=== PATIENT | female | born 1950 | race Caucasian/White ===

== ENCOUNTER 2023-12-31 08:34 | Observation (INO) ==
--- NOTE | 2023-12-15 13:30 | PAT Medication Instructions ---
Medication Instructions Date of Service December 15, 2023 Home Medications Medication Instructions Recorded meloxicam 15 mg tablet See Rx Instructions .Route 11/03/23 .COMPLEX #60 tabs atorvastatin 20 mg tablet (Lipitor) 20 mg PO PM esomeprazole magnesium 20 mg capsule,delayed release (Nexium) 20 mg PO DAILY PRN Heartburn sertraline 50 mg tablet (Zoloft) 50 mg PO PM coenzyme Q10 100 mg capsule (Co Q-10) 100 mg PO PM meloxicam 15 mg tablet See Rx Instructions Continue as directed esomeprazole magnesium 20 mg capsule,delayed release (Nexium) 20 mg PO DAILY PRN Heartburn (if needed) ASK your surgeon for instructions meloxicam 15 mg tablet See Rx Instructions STOP taking 2 weeks before surgery (or as soon as possible): coenzyme Q10 100 mg capsule (Co Q-10) 100 mg PO PM Take evening before surgery atorvastatin 20 mg tablet (Lipitor) 20 mg PO PM sertraline 50 mg tablet (Zoloft) 50 mg PO PM OTHERWISE NOTHING TO EAT OR DRINK AFTER MIDNIGHT Other Notes If you have any questions please call us at [phone] or [phone] or [phone] or [phone]
--- NOTE | 2023-12-17 13:00 | Anesthesiology Consultation ---
Date of Service December 17, 2023 Assessment & Plan (1) Encounter for pre-operative examination: Outpatient joint assessment: Pt currently scheduled for inpatient pathway. If surgeon requests review for outpatient joint pathway, patient is not recommended candidate for outpatient joint program from anesthesia standpoint based on available information. Chart Review Chart Review: Acceptable Risk for Surgery and Patient seen in Pre Admission Testing Teaching & Discussion Pre-Anesthesia Teaching/Discussion Notes: Instructed NPO after midnight before surgery,except medications with 15 cc of water. Medication instructions provided according to the PAT guidelines. History Surgery Operation Date: 12/31/23 08:50 Proposed Procedures p Right Total Knee Arthroplasty - Michael Weinberg MD Height/Weight Height: 5 ft 3 in Weight: 79 kg Allergies Allergy/AdvReac Type Severity Reaction Status Date / Time No Known Allergies Allergy Verified 12/15/23 10:54 Medications Home Medications Medication Instructions Recorded Confirmed Last Taken atorvastatin 20 mg tablet (Lipitor) 20 mg PO PM 08/14/21 12/15/23 Unknown esomeprazole magnesium 20 mg 20 mg PO DAILY PRN Heartburn 08/14/21 12/15/23 Unknown capsule,delayed release (Nexium) sertraline 50 mg tablet (Zoloft) 50 mg PO PM 08/14/21 12/15/23 Unknown coenzyme Q10 100 mg capsule (Co 100 mg PO PM 08/29/21 12/15/23 Unknown Q-10) meloxicam 15 mg tablet See Rx Instructions .Route 11/03/23 12/15/23 Unknown .COMPLEX #60 tabs vitamin D3-vitamin K2 1 tab PO PM 12/17/23 12/17/23 Unknown Past Medical History Medical History Anxiety Depression GERD (gastroesophageal reflux disease) History of COVID-19 (04/2022) Symptoms resolved History of dizziness Intermittent x years, Managed with Meclizine PRN No definitive etiology found per patient Hyperlipidemia Osteoarthritis Exercise / Class Metabolic Activity II 4-5 Yardwork/Stairs/Walk up hill (one FS: No CP, no SOB) Past Family History Family History Mother Leukemia Past Surgical History Surgical History History of adenoidectomy History of carpal tunnel release Right History of colonoscopy History of hysterectomy History of postoperative nausea and vomiting History of tonsillectomy History of tooth extraction S/P right knee arthroscopy 09[place]20[place] [facility] [place] Slow to wake up after anesthesia Past Anesthesia History No Family Hx of Anesthesia Complications and Other (Slow to wake (specifically with hysterectomy)) History of PONV No Hx of Motion Sickness and History of PONV Social History Smoking Status: Never smoker Do You Dip or Chew Tobacco: No Hx Alcohol Use: Yes alcohol intake frequency: holidays/special occasions only Hx Substance Use: No substance use type: does not use Review of Systems Hx of dizziness over past several years resolved with Meclizine PRN. No definitive etiology found per patient. Recent recurrence, will be contacting PCP for Meclizine refill. Patient advised to contact PAT if worsening/persistence of dizziness outside of baseline. Red flag symptoms reviewed and advised to proceed to ER if any development of these. Patient denies chest pain, shortness of breath, dyspnea on exertion, fever, chills, cough, wheezing, palpitations. Physical Exam Vital Signs BP 118/71 P 80 TEMP 98.6 SP02 96%RA RESP 16 Physical Full cervical extension range of motion. Full TMJ range of motion. TMD 3.5 finger breaths Mallampati Score 3 Dentition: intact Lungs: clear throughout to auscultation Cardiac: regular rate and rhythm, no murmurs noted Spine: normal Carotid arteries: negative bruit Extremities: no LE edema Lab Results Anesthesia Preop Results Results Anesthesia Widget: WBC 5.92 K/ul (4.8-10.8) 12/17/23 Hgb 13.1 g/dl (12.0-16.0) 12/17/23 Hct 39.4 % (37.0-47.0) 12/17/23 Plt 201 K/uL (130-400) 12/17/23 Na 142 mmol/L (136-145) 12/17/23 K 4.4 mmol/L (3.5-5.1) 12/17/23 Cl 109 mmol/L (98-107) H 12/17/23 CO2 28 mmol/L (21-32) 12/17/23 BUN 20 mg/dl (6-23) 12/17/23 Creat 0.70 mg/dl (0.6-1.2) 12/17/23 Glucose Level 109 mg/dl (70-99(Fasting)) H 12/17/23 PT 10.4 Seconds (9.0-12.0) 12/17/23 PTT 24 Seconds (21-31) 12/17/23 INR 1.0 (0.9-1.1) 12/17/23 Blood Type O Positive 12/17/23 Antibody Screen NEGATIVE 12/17/23 Testing Electrocardiogram Date: 12/17/23 NSR at 75bpm. LAD. Low voltage QRS. No significant change compared to 09/02/2021 per theatrical dresser comparison. Chest X-Ray Date: 12/17/23 Findings: + NAD
[~2023-12-31 08:34] MED LIST: BUPIVACAINE 0.5 % 5 MG/1 ML PF 10ML VIAL ONE; ROPIVACAINE 0.5% 5 MG/ML 30 ML VIAL ONE
--- NOTE | 2023-12-31 08:42 | History & Physical Bridge Note ---
Date of Service December 31, 2023 History & Physical Bridge Note I have examined the patient, reviewed the History & Physical and in the interval since the performance of the History & Physical I have noted the following changes of clinical significance: no changes noted
[2023-12-31] MEDS ORDERED: LIDOCAINE 2% 2 ML VIAL/AMP(20MG/ML) INFIL ONE (09:08)
[2023-12-31] MEDS ORDERED: PROPOFOL IV EMULSION 10 MG/ML 20 ML VIAL IV ONE ×4 (09:08→12:39)
[2023-12-31] MEDS ORDERED: MIDAZOLAM HCL 1 MG/ML 2ML VIAL ONE (09:08)
[2023-12-31] MEDS: LR 60ML/HR IV SCH (09:46)
[2023-12-31] MEDS: LR 500ML BOLUS, THEN 15ML/HR IV SCH (09:46)
[2023-12-31] MEDS: dexAMETHasone**PF** 10 MG/ML VIAL IV SCH (09:47)
[2023-12-31] MEDS: CeleBREX 200 MG CAP PO SCH (09:47)
[2023-12-31] MEDS: METOCLOPRAMIDE HCL 10 MG TABLET PO SCH (09:47)
[2023-12-31] MEDS: ACETAMINOPHEN 500 MG TAB PO SCH ×2 (09:48→14:37)
[2023-12-31] MEDS: FAMOTIDINE 20 MG TAB PO SCH (09:48)
[2023-12-31] MEDS: ceFAZolin 2000MG 2,000 MG/15 ML SYR IV SCH (11:12)
[2023-12-31] MEDS ORDERED: ePHEDrine sulfate 50 MG/ML AMP IV PRN (11:14)
[2023-12-31] MEDS ORDERED: fentaNYL citrate PF 100 MCG/2 ML VIAL IV PRN (11:14)
[2023-12-31] MEDS ORDERED: PROMETHAZINE HCL 6.25 MG in SODIUM CHLORIDE 0.9% 50 ML IV PRN (11:14)
[2023-12-31] MEDS ORDERED: ATROPINE SULFATE 0.1 MG/ML 10ML SYR IV PRN (11:14)
[2023-12-31] MEDS ORDERED: ONDANSETRON INJ 2 MG/ML 2 ML VIAL IV PRN ×2 (11:14→14:10)
[2023-12-31] MEDS ORDERED: HYDROmorphone INJ 2 MG/ML SYR/VIAL IV PRN (11:14)
[2023-12-31] MEDS ORDERED: KETAMINE HCL 10MG/ML SYR ONE (11:26)
[2023-12-31] MEDS ORDERED: GLYCOPYRROLATE 0.2 MG/ML VIAL ONE (11:29)
[2023-12-31] MEDS ORDERED: ONDANSETRON INJ 2 MG/ML 2 ML VIAL ONE (11:29)
[2023-12-31] MEDS: ROPIV 0.5% 246mg, Ketorolac 30mg, EPINEPHrine 0.5mg in NSS INFIL SCH (12:08)
[2023-12-31] MEDS: TRANEXAMIC ACID 1,000 MG **IV Intra-op IV SCH (12:13)
[2023-12-31] MEDS: ORTHO JOINT ANESTHETIC ONE (12:27)
[2023-12-31] MEDS ORDERED: PHENYLEPHRINE 100MCG/ML 10ML SYR IV ONE (12:45)
--- NOTE | 2023-12-31 13:19 | Operative Report ---
PG Post Operative Report Pre & Post Diagnosis Operation Date: 12/31/23 10:40 Pre-Op Diagnosis: Right Knee Degenerative Joint Disease Post-Op Diagnosis: Right Knee Degenerative Joint Disease I identified the patient and participated in the time-out.: Yes Procedure Operation Date: 12/31/23 10:40 Actual Procedures p Right Total Knee Arthroplasty(Right) - Michael Weinberg MD Surgeon Michael Weinberg MD Machine Package Sealer Sunita Abernathy PA-C Estimated Blood Loss 50 Findings Consistent with Post-Op Diagnosis Operative findings revealed advanced right knee DJD. 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 Moderate- sized joint effusion. Specimens Right knee sent for pathology. Anesthesia Type Spinal MAC Complications none Disposition Accompanied Patient To Recovery: No Indications Patient is 73-year-old female with several year history of increasing bilateral knee pain discomfort right side greater than left. She did have a right knee arthroscopy several years ago which provide some temporary relief. Over the past year she developed increased pain discomfort in both knees right side worse than left. She failed conservative treatment. She elected proceed with total knee arthroplasty. Description of Procedure Operative implants consist of: 1 Biomet Vanguard size 65 right posterior stabilized femoral component. 2. Biomet size 67 tibial tray. 3. 10 mm posterior Byce polyethylene insert. 4. 31 x 8 all poly patella. The patient was taken the operating, identified, placed on the operating table in supine position but all contact areas were appropriately padded. IV antibiotics tried by anesthesia team. A spinal anesthetic and abductor canal block had been provided in the holding area. Bell catheter was placed in sterile fashion. Right Tetrick was then placed in the right lower extremities then prepped and draped in usual sterile fashion. The right leg was elevated and exsanguinated with use of an Esmarch and tourniquet placed at 300 mmHg. An anterior approach to the right knee was then performed to longitudinal incision centered over the patella. Sharp dissection Through subcutaneous tissue down the lower extensor mechanism. A medial parapatellar arthrotomy incision was made. Some subperiosteal dissection was carried out medially. The fat pad was resected from Neath patella tendon. Lateral patellofemoral ligament was released. Patella subluxated laterally and the knee was flexed. The osteophyte taken off distal femur. ACL PCL were then released from distal femur and the tibia subluxated anteriorly. The external treatment line jig was then placed on the anterior face of the tibia and adjusted 12 mm medially. Proximal tibial cut was made remove about 2 to 3 mm of bone from the medial side. Tibia sized to a size 67. Attention drawn the femur. The distal femur Zaro the sharp drill. Intramedullary canal was suction. A right 5 degree valgus cutting guide was placed. The distal femoral cutting block was pinned in place. Distal femoral cut was made to take an additional 3 mm of bone off distal femur. The femur was then sized to a size 65. The AP cutting block was pinned parallel to the epicondylar axis which was 4 degrees of external rotation. The anterior cut, anterior chamfer, posterior cut, posterior chamfer cuts were made. The box cutting guide was placed and adjust slight lateral box cut was made. The knee was flexed. The remnants of the medial and lateral menisci were excised. The osteophytes were taken off the posterior aspect of the femur. I did release the popliteus tendon in order to equalize the flexion gap. I did do some pie crusting the IT band to equalize extension gap as well. Great care was taken to protect the peroneal nerve at all times. The trial femoral component was placed. The tibial tray was pinned Julieta external rotation and the drill and stem punch were used to create defect in proximal tibia for the tibial tray. Knee was then trialed and the 10 mm insert fit most appropriately. Attention drawn the patella. The patella was cleaned of all soft tissues. Patella thickness measured 23 mm in thickness was cut down to 14. Was sized to a size 31 patella. The lug holes were drilled for 31 patella. The lateral osteophytes removed. Patella button was placed. Knee was taken through range of motion patella tracked nicely with no thumbs test. Attention drawn to placing permanent components. Nupathe all trial components were removed. A bone plug was placed in the distal femur limit blood loss. A double batch Palacos G cement was mixed. Biomet Vanguard size 65 right posterior Byce femoral component, size 67 tibial tray, 10 mm post stabilized polyethylene insert, and a 31 x 8 all poly patella then cemented in place. The knee was brought out into full extension till cement hardened. Final cement check was then performed. The pericapsular tissues were injected with total of 100 cc of Ortho mix. The patient did receive 1 g tranexamic acid. The tourniquet was then let down for final tourniquet time of 59 minutes. Hemostasis assured use electrocautery. Extensor Meclomen closed with comb ination 1 PDS suture #1 Vicryl suture in a [id number] fashion. Extensor Meclomen checked found to be intact with subcutaneous tissue then closed with 2 Dexon suture in a buried interrupted fashion skin was closed skin pop. Leg was then cleaned and dried and a sterile dressing with Xeroform, 4 fours, sterile cast padding, Dakota bandage were applied. Patient then transferred to the recovery room in stable condition. Patient tolerated procedure well and there were no complications. Sunita Abernathy, my physician under water assistant, was present for the entire procedure. Her assistance was required for proper patient positioning, prepping and draping, surgical exposure, retraction, perform the technical details of the operation, placement of the implants, closure of the incision site and placement of the sterile bandage. I attest to the content of the Intraoperative Record and any orders documented therein. Any exceptions are noted below.
[2023-12-31] MEDS ORDERED: bisacodyL 10 MG SUPP PR PRN (14:10)
[2023-12-31] MEDS ORDERED: NALOXONE HCL 0.4 MG/1 ML VIAL/CARP IV PRN (14:10)
[2023-12-31] MEDS ORDERED: METOCLOPRAMIDE HCL INJ 5 MG/ML 2 ML VIAL IV PRN (14:10)
[2023-12-31] MEDS ORDERED: MAGNESIUM HYDROXIDE SUSP 30 ML UDC PO PRN (14:10)
[2023-12-31] MEDS ORDERED: ALUMINUM/MAGNESIUM SUSP 30 ML UDC PO PRN (14:10)
[2023-12-31] MEDS ORDERED: HYDROmorphone INJ 0.5 MG/0.5 ML SYR IV PRN (14:10)
--- NOTE | 2023-12-31 14:14 | Anesthesiology Progress Note ---
Date of Service December 31, 2023 Anesthesia Post Procedure Vital Signs Vital Signs: Temp Pulse Pulse Resp BP Pulse Ox O2 Del Method 12/31/23 14:00 36.9 C 74 16 113/70 97 Room Air 12/31/23 13:40 36.3 C L 71 15 96/53 L 94 Room Air 12/31/23 13:30 77 16 116/56 L 94 Room Air 12/31/23 13:20 75 18 117/56 L 94 Room Air 12/31/23 13:10 78 15 111/55 L 94 Room Air 12/31/23 13:03 36.1 C L 84 14 103/56 L 96 Room Air 12/31/23 09:14 36.9 C 87 20 147/77 H 97 Room Air Transfer of Care Handoff Completed per policy Notes Mental Status: alert / awake / arousable and participated in evaluation Patient Amnestic to Procedure: Yes Nausea / Vomiting: adequately controlled Pain: adequately controlled Airway Patency, RR, SpO2: stable & adequate BP & HR: stable & adequate Hydration State: stable & adequate Anesthetic Complications: no major complications apparent
[2023-12-31] MEDS ORDERED: PANTOprazole 40 MG TAB PO PRN (14:17)
[2023-12-31] MEDS: SODIUM CHLORIDE 0.9% 1,000 ML IV SCH (14:37)
--- NOTE | 2023-12-31 16:12 | XRay Report ---
XR knee RT 1 or 2V routine CLINICAL HISTORY: Surgical Post Op TECHNIQUE: 2 views of the right knee were obtained. Comparison: Comparison is made to knee MRI 02/20/2021 FINDINGS: Patient is status post total knee arthroplasty with expected postsurgical changes including soft tiss ue swelling and subcutaneous emphysema. No periarticular lucency or hardware fracture is seen. IMPRESSION: Expected postoperative appearance status post placement of total knee arthroplasty. ACT 112: Negative or not required by law. Electronically signed by: Gilles Salinas M.D. 12/31/2023 4:10 PM
[2023-12-31] MEDS: ASCORBIC ACID 500 MG TAB PO SCH (17:34)
[2023-12-31] MEDS: oxyCODONE HCL IR 5 MG TAB (IMMEDIATE RELEASE) PO PRN (17:37)
[2023-12-31] MEDS: TRANEXAMIC ACID / 0.7% NACL 1,000 MG/100 ML BAG IV SCH (19:58)
[2023-12-31] MEDS: ceFAZolin 1000MG 1,000 MG/7.5 ML SYR IV SCH (19:58)
[2023-12-31] MEDS: DOCUSATE SODIUM 100 MG CAP PO SCH (20:00)
[2023-12-31] MEDS: SENNA 8.6 MG TAB PO SCH (20:00)
[2023-12-31] MEDS: SERTRALINE HCL 50 MG TABLET PO SCH (20:00)
[2023-12-31] MEDS: ATORVASTATIN 20 MG TAB PO SCH (20:00)
[2023-12-31] MEDS: ASPIRIN 81 MG ECTAB PO SCH (20:00)
[2023-12-31] MEDS ORDERED: VITAMIN D3 VITAMIN K2 PO SCH (21:00)
[2023-12-31] MEDS ORDERED: NON-FORMULARY MEDICATION (Coenzyme Q10 [Co Q-10] 100 mg Capsule) PO SCH (21:00)
[2023-12-31] MEDS ORDERED: SENNA 8.6 MG TAB PO SCH (21:00)
[2023-12-31] MEDS: KETOROLAC TROMETHAMINE 15 MG/ML VIAL IV SCH (21:50)
--- NOTE | 2024-01-01 07:08 | Orthopedic Progress Note ---
Date of Service January 01, 2024 Assessment & Plan (1) Status post right knee replacement: Plan: 73-year-old female postop day 1 from right knee replacement doing pretty well. Pain is controlled. She is neurologically intact. Plan: 1. DVT prophylaxis including thigh-high teds, SCDs, aspirin twice a day. 2. PT/OT. Weight-bear as tolerated. Right total knee protocol. 3. Pain control doing well with current pain regimen. 4. Disposition plan to discharge home with some home health if she does okay in therapy today. Admission and Anticipated Discharge Date Admission Date: December 31, 2023 Subjective 73-year-old female postop day 1 from right knee replacement. She is doing pretty well this morning. Pains controlled. Did not get much sleep last night. No chest pain or shortness of breath. Not feeling dizzy or lightheaded. Hoping to go home today. Physical Exam Physical Exam: Physical examination is a pleasant middle-age female patient lying in bed. She is awake alert and looks ready to go. Examination the right leg reveals dressing clean dry and intact. Leg is well aligned. She can dorsiflex and plantarflex her foot appropriately. She does a good straight leg raise. Respiratory: normal respiratory effort, lungs clear to auscultation Cardiovascular: RRR, no murmur, no edema Gastrointestinal (Abdomen): normal bowel sounds, soft, nontender, no hepatosplenomegaly Results & Data Vital Signs (Past 12 Hours) Vital Signs Temp Pulse Resp BP Pulse Ox O2 Del Method 01/01/24 04:33 37.0 C 67 14 136/71 94 Room Air 12/31/23 23:43 36.9 C 72 14 108/61 93 Room Air 12/31/23 20:12 36.6 C 79 14 119/67 94 Room Air Laboratory Results Lab results are pending.
[2024-01-01 07:28] LABS: Hematocrit (blood only) 33.4 % (37.0-47.0); Hemoglobin 11.1 g/dl (12.0-16.0); Mean Corpuscular Hemoglobin 28.5 pg (25.0-34.0); Mean Corpuscular Hgb Conc 33.2 g/dL (32.0-36.0); Mean Corpuscular Volume 85.9 fL (80.0-100.0); Mean Platelet Volume 11.8 fL (9.4-12.4); Platelet Count 204 K/uL (130-400); RDW Coefficient of Variation 12.3 % (11.5-14.5); RDW Standard Deviation 38.1 fL (36.4-46.3); Red Blood Count 3.89 M/uL (4.20-5.40); White Blood Count 16.71 K/ul (4.8-10.8)
[2024-01-01 07:55] LABS: BUN Creatinine Ratio 28.4 (10-20); Calcium 8.4 mg/dl (8.6-10.3); Creatinine Clr Calc Pharmacy 67.5 ml/min; Est GFR (African American) 93.8 ml/min; Est GFR (Non-African American) 80.9 ml/min; Potassium 4.3 mmol/L (3.5-5.1)
[2024-01-01] MEDS: MULTIVITAMIN TAB PO SCH (08:23)
[2024-01-01] MEDS: dexAMETHasone 10 MG in SYRINGE 0 ML IV SCH (08:24)
== END 2024-01-01 12:30 | disposition home health service (06) ==
LOC: 3E 08:34 → ASU 08:34
DX: K21.9 Gastro-esophageal reflux disease without esophagitis; Z79.82 Long term (current) use of aspirin; F32.9 Major depressive disorder, single episode, unspecified; M17.11 Unilateral primary osteoarthritis, right knee; Z79.899 Other long term (current) drug therapy

== ENCOUNTER 2024-03-30 05:08 | Observation (INO) ==
--- NOTE | 2024-03-16 15:41 | Anesthesiology Consultation ---
Date of Service March 16, 2024 Assessment & Plan (1) Encounter for pre-operative examination: - Outpatient joint assessment: Patient is currently scheduled for inpatient pathway. If re-evaluated and patient/surgeon requests outpatient pathway, patient is not ideal candidate for outpatient joint program from anesthesia standpoint. Chart Review Chart Review: Acceptable Risk for Surgery and Patient NOT seen in Pre Admission Testing History Surgery Operation Date: 03/30/24 07:15 Proposed Procedures p Left Total Knee Arthroplasty - Michael Weinberg MD Height/Weight Height: 5 ft 3 in Weight: 79.379 kg Allergies Allergy/AdvReac Type Severity Reaction Status Date / Time No Known Allergies Allergy Verified 03/16/24 14:57 Medications Home Medications Medication Instructions Recorded Confirmed Last Taken atorvastatin 20 mg tablet (Lipitor) 20 mg PO QPM 08/14/21 03/16/24 12/30/23 21:30 esomeprazole magnesium 20 mg 20 mg PO DAILY PRN Heartburn 08/14/21 03/16/24 12/30/23 21:30 capsule,delayed release (Nexium) sertraline 50 mg tablet (Zoloft) 50 mg PO PM 08/14/21 03/16/24 12/30/23 09:30 coenzyme Q10 100 mg capsule (Co 100 mg PO PM 08/29/21 03/16/24 12/22/23 Q-10) vitamin D3-vitamin K2 1 tab PO PM 12/17/23 03/16/24 12/22/23 aspirin 81 mg tablet,delayed 81 mg PO BID 45 days #90 tabs 12/28/23 03/16/24 Unknown release (Lisette Low Dose Aspirin) cefadroxil 500 mg capsule 500 mg PO BID 7 days #14 caps 12/28/23 03/16/24 Unknown ketorolac 10 mg tablet 10 mg PO Q6 pain 5 days #20 tabs 12/28/23 03/16/24 Unknown ondansetron 4 mg disintegrating 4 mg PO Q8 PRN nausea #20 tabs 12/28/23 03/16/24 Unknown tablet oxycodone 5 mg tablet 5 - 10 mg (1 - 2 x 5 mg) PO Q6 PRN 12/28/23 03/16/24 Unknown pain #40 tabs sennosides 8.6 mg tablet (Senokot) 8.6 mg PO BID prevent constipation 12/28/23 03/16/24 Unknown 14 days #28 tabs Wheeled Walker #1 ea 01/01/24 Unknown acetaminophen 500 mg tablet 1,000 mg PO DAILY Pain 03/16/24 03/16/24 Unknown (Tylenol Extra Strength) fluticasone propionate 50 2 spray intranasal DAILY PRN 03/16/24 03/16/24 Unknown mcg/actuation nasal Allergies spray,suspension meloxicam 15 mg tablet 15 mg PO DAILY PRN Pain 03/16/24 03/16/24 Unknown Past Medical History Medical History (Updated 03/16/24 @ 15:39 by Anya French PA-C) Anxiety Depression GERD (gastroesophageal reflux disease) History of COVID-19 (04/2022) Symptoms resolved History of dizziness Intermittent x years, Managed with Meclizine PRN No definitive etiology found per patient Hyperlipidemia Osteoarthritis Past Family History Family History Mother Leukemia Past Surgical History Surgical History History of adenoidectomy History of carpal tunnel release Right History of colonoscopy History of hysterectomy History of postoperative nausea and vomiting History of tonsillectomy History of tooth extraction History of total right knee replacement S/P right knee arthroscopy 09/10/2021, [facility] Slow to wake up after anesthesia "When I had my hysterectomy" Social History Smoking Status: Never smoker Do You Dip or Chew Tobacco: No Hx Alcohol Use: No alcohol intake frequency: holidays/special occasions only Hx Substance Use: No substance use type: does not use Lab Results Anesthesia Preop Results Results Anesthesia Widget: WBC 5.39 K/ul (4.8-10.8) 02/12/24 Hgb 12.4 g/dl (12.0-16.0) 02/12/24 Hct 38.6 % (37.0-47.0) 02/12/24 Plt 192 K/uL (130-400) 02/12/24 Na 141 mmol/L (136-145) 02/12/24 K 4.3 mmol/L (3.5-5.1) 02/12/24 Cl 106 mmol/L (98-107) 02/12/24 CO2 27 mmol/L (21-32) 02/12/24 BUN 22 mg/dl (6-23) 02/12/24 Creat 0.70 mg/dl (0.6-1.2) 02/12/24 Glucose Level 99 mg/dl (70-99(Fasting)) 02/12/24 PT 10.4 Seconds (9.0-12.0) 02/12/24 PTT 23 Seconds (21-31) 02/12/24 INR 1.0 (0.9-1.1) 02/12/24 Blood Type O Positive 02/12/24 Antibody Screen NEGATIVE 02/12/24 Testing Electrocardiogram Date: 12/17/23 NSR, rate 75 bpm Left axis deviation Low voltage QRS Chest X-Ray Date: 12/17/23 No acute chest disease.
--- NOTE | 2024-03-27 20:35 | History & Physical Report ---
Date of Service March 27, 2024 Assessment & Plan (1) Left knee DJD: 73-year-old female now 3 months out from a right knee replacement with advanced left knee DJD. She has failed conservative measures. She is happy with the right knee would like to have her left knee replaced. Plan: When taken to the operating do left total knee replacement for the right cementless procedure explained to the patient and include but not limited to a DVT PE infection neurological injury vascular bleeding palm pain limb range of motion this is fairly her symptoms incomplete relief of symptoms excetra. The patient understands and desires to proceed informed consent was obtained. Detailed plan stay in the hospital overnight. DVT prophylaxis will be thigh- high teds, SCDs, aspirin twice a day. She has had trouble sleeping the last time. We talked about medicines but have to be careful with pain medicine use. She will likely try some melatonin and see how that does. (2) Status post right knee replacement: History of Present Illness Chief Complaint: . Persistent progressive left knee pain and discomfort. Primary Care Provider: Fredy Holden . The patient is a 73-year-old female and [id number] of And well send one of our physicians here who presents now for treatment of her left knee. She got a long history of knee pain and discomfort described to gotten worse over time. She had a right knee replaced just about 3 months ago and is doing well from this. She is recovered. Very happy with this. She continues to be limited by left knee pain discomfort. She has failed extensive conservative treatment over the years. She now like to proceed with left knee replacement. Allergies Allergy/AdvReac Type Severity Reaction Status Date / Time No Known Allergies Allergy Verified 03/16/24 14:57 Home Medications Medication Instructions Recorded Confirmed Type atorvastatin 20 mg tablet (Lipitor) 20 mg PO QPM 08/14/21 03/16/24 History esomeprazole magnesium 20 mg 20 mg PO DAILY PRN Heartburn 08/14/21 03/16/24 History capsule,delayed release (Nexium) sertraline 50 mg tablet (Zoloft) 50 mg PO PM 08/14/21 03/16/24 History coenzyme Q10 100 mg capsule (Co 100 mg PO PM 08/29/21 03/16/24 History Q-10) vitamin D3-vitamin K2 1 tab PO PM 12/17/23 03/16/24 History aspirin 81 mg tablet,delayed 81 mg PO BID 45 days #90 tabs 12/28/23 03/16/24 Rx release (Lisette Low Dose Aspirin) cefadroxil 500 mg capsule 500 mg PO BID 7 days #14 caps 12/28/23 03/16/24 Rx ketorolac 10 mg tablet 10 mg PO Q6 pain 5 days #20 tabs 12/28/23 03/16/24 Rx ondansetron 4 mg disintegrating 4 mg PO Q8 PRN nausea #20 tabs 12/28/23 03/16/24 Rx tablet oxycodone 5 mg tablet 5 - 10 mg (1 - 2 x 5 mg) PO Q6 PRN 12/28/23 03/16/24 Rx pain #40 tabs sennosides 8.6 mg tablet (Senokot) 8.6 mg PO BID prevent constipation 12/28/23 03/16/24 Rx 14 days #28 tabs Wheeled Walker #1 ea 01/01/24 Rx acetaminophen 500 mg tablet 1,000 mg PO DAILY Pain 03/16/24 03/16/24 History (Tylenol Extra Strength) fluticasone propionate 50 2 spray intranasal DAILY PRN 03/16/24 03/16/24 History mcg/actuation nasal Allergies spray,suspension meloxicam 15 mg tablet 15 mg PO DAILY PRN Pain 03/16/24 03/16/24 History Past Med/Surg History Problem List Encounter for pre-operative examination Left knee DJD Status post right knee replacement Medical History History of dizziness Intermittent x years, Managed with Meclizine PRN No definitive etiology found per patient History of COVID-19 (04/2022) Symptoms resolved Osteoarthritis Depression Anxiety GERD (gastroesophageal reflux disease) Hyperlipidemia Surgical History History of total right knee replacement History of postoperative nausea and vomiting Slow to wake up after anesthesia "When I had my hysterectomy" S/P right knee arthroscopy 09/10/2021, [facility] [place] History of hysterectomy History of carpal tunnel release Right History of colonoscopy History of tooth extraction History of adenoidectomy History of tonsillectomy Family History Mother Leukemia Social History Smoking Status: Never smoker Second Hand Exposure: No; Do You Dip or Chew Tobacco: No; Tobacco Cessation Education Requested by Patient: No Hx Alcohol Use: No Hx Substance Use: No Preferred Language: Dominican Communication Ability: Effective Hose Operator Required: No Beliefs That Will Affect Care: None Current Living Situation: Spouse Other Information That Helps Us Care for You: No Feels Safe at Home: Yes Safety Concerns: Feels Safe At This Time Assistive Devices: Contacts Review of Systems All systems reviewed & are unremarkable except as noted in HPI & below. Physical Exam . Physical examination reveals a pleasant middle-age female. Looks in good health. Examination of both knees reveal patient ambulates independently. Examination of the left knee reveals varus alignment to her knee. She is tender over the medial joint line. Small knee effusion. Range of motion is 5-1 15. No instability. No particular pain with hip motion. Examination of the right knee reveals a well-healed incision. Some mild residual swelling. Range of motion 0 about 110. Good straight leg raise. Constitutional WD/WN, vitals as above Neck trachea midline, no thyromegaly Respiratory normal respiratory effort, lungs clear to auscultation Cardiovascular RRR, no murmur, no edema Gastrointestinal (Abdomen) normal bowel sounds, soft, nontender, no hepatosplenomegaly Results & Data Results & Data Laboratory Results . Diagnostic Findings . X-rays of the right knee revealed advanced right knee medial compartment DJD. She has complete loss of the medial joint space. Got osteophytes primarily medially. She got subchondral sclerosis. Trays the left knee reveals well aligned knee replacement. Components look in good position without problems. PG Care Time/CCT Total # of Minutes Spent Total Time Spent with Patient: Total time spent is greater than 50% in coordination of care (as documented) at patient's floor/unit and/or counseling patient: Coding Level of Care Code None Diagnoses Left knee DJD M17.12 Status post right knee replacement Z96.651
[2024-03-30] MEDS: LR 500ML BOLUS, THEN 15ML/HR IV SCH (05:51)
[2024-03-30] MEDS: ACETAMINOPHEN 500 MG TAB PO SCH ×2 (06:01→15:21)
[2024-03-30] MEDS: dexAMETHasone**PF** 10 MG/ML VIAL IV SCH (06:02)
[2024-03-30] MEDS: FAMOTIDINE 20 MG TAB PO SCH (06:02)
[2024-03-30] MEDS: CeleBREX 200 MG CAP PO SCH (06:02)
[2024-03-30] MEDS: METOCLOPRAMIDE HCL 10 MG TABLET PO SCH (06:02)
[2024-03-30] MEDS ORDERED: BUPIVACAINE 0.5 % 5 MG/1 ML PF 10ML VIAL ONE (06:18)
[2024-03-30] MEDS ORDERED: BUPIVACAINE 0.25% PF 30 ML VIAL ONE (06:19)
[2024-03-30] MEDS ORDERED: MIDAZOLAM HCL 1 MG/ML 2ML VIAL ONE ×2 (06:37→06:42)
[2024-03-30] MEDS ORDERED: fentaNYL citrate PF 100 MCG/2 ML VIAL ONE (06:42)
--- NOTE | 2024-03-30 06:42 | History & Physical Bridge Note ---
Date of Service March 30, 2024 History & Physical Bridge Note I have examined the patient, reviewed the History & Physical and in the interval since the performance of the History & Physical I have noted the following changes of clinical significance: no changes noted
[2024-03-30] MEDS ORDERED: ePHEDrine sulfate 50 MG/ML AMP IV PRN (06:48)
[2024-03-30] MEDS ORDERED: ONDANSETRON INJ 2 MG/ML 2 ML VIAL IV PRN (06:48)
[2024-03-30] MEDS ORDERED: ATROPINE SULFATE 0.1 MG/ML 10ML SYR IV PRN (06:48)
[2024-03-30] MEDS ORDERED: fentaNYL citrate PF 100 MCG/2 ML VIAL IV PRN (06:48)
[2024-03-30] MEDS: ceFAZolin 2000MG 2,000 MG/15 ML SYR IV SCH ×2 (07:00→15:21)
[2024-03-30] MEDS ORDERED: PROPOFOL IV EMULSION 10 MG/ML 20 ML VIAL IV ONE (07:10)
[2024-03-30] MEDS: LR 60ML/HR IV SCH (07:16)
[2024-03-30] MEDS: ORTHO JOINT ANESTHETIC ONE (07:37)
[2024-03-30] MEDS: TRANEXAMIC ACID 1,000 MG **IV Intra-op IV SCH (08:18)
[2024-03-30] MEDS: ROPIV 0.5% 246mg, Ketorolac 30mg, EPINEPHrine 0.5mg in NSS INFIL SCH (08:19)
--- NOTE | 2024-03-30 08:50 | Operative Report ---
PG Post Operative Report Pre & Post Diagnosis Operation Date: 03/30/24 07:00 Pre-Op Diagnosis: Osteoarthritis Knee Left Post-Op Diagnosis: Osteoarthritis Knee Left I identified the patient and participated in the time-out.: Yes Procedure Operation Date: 03/30/24 07:00 Actual Procedures p Left Total Knee Arthroplasty, Cemented(Left) - Michael Weinberg MD Surgeon Michael Weinberg MD Child Advocate Chun Kirkland PA-C Estimated Blood Loss 50 Findings Consistent with Post-Op Diagnosis Operative findings were advanced left knee tricompartment DJD. She had grade 4 [id number] disease in all 3 compartments most severe in the medial side. Osteophytes primarily medially. Moderate-sized joint effusion. Specimens Left knee sent for pathology. Anesthesia Type Spinal MAC Complications none Disposition Accompanied Patient To Recovery: No Indications The patient is a 73-year-old female whose had a long history of increasing bilateral knee pain discomfort described to gotten worse over time. She failed conservative measures. She had a right knee replaced about 4 months ago and is done well from this. She continued be limited by left knee pain and discomfort. She elects proceed with left total knee arthroplasty. Description of Procedure Operative implants consist of: 1. Biomet Vanguard size 65 left posterior Byce femoral component. 2. Biomet size 71 tibial tray. 3. 10 mm posterior stabilized polyethylene insert. 4. 31 x 8 all poly patella. The patient was taken to the operating, identified, and placed on the operating table in the supine position. All contact areas were appropriately padded. IV antibiotics tried by anesthesia team. A spinal anesthetic had been implemented in the holding area along with an abductor canal block. A Bell catheter was placed in sterile fashion. A left thigh turn was then placed. The left lower extremities then prepped and draped in usual sterile fashion. The left leg was elevated exsanguinated with use of an Esmarch and tourniquet placed at 300 mmHg. An anterior approach to the left knee was then performed to longitudinal incision centered over the patella. Sharp dissection carried through subcutaneous tissue down the extensor mechanism. A medial parapatellar arthrotomy incision was made. Some subperiosteal dissection was carried out medially. The fat pad was dissected beneath patella tendon. Lateral patellofemoral ligament was released. Patella subluxated laterally and the was flexed. The osteophytes taken off distal femur. The ACL and PCL were then released from distal femur and the tibia subluxated anteriorly. The external tibial alignment jig was then placed on the anterior face of the tibia and adjusted 14 mm medially. Proximal tibial cut was made remove about a millimeter bone from most deficient aspect medial tibial plateau. Some osteophytes taken off medial and posterior medially. The tibia sized to a size 71. Attention drawn the femur. The distal femur examined the sharp drop with intramedullary canal was suction. A left 5 degree valgus cutting guide was placed but the distal femoral cutting block was pinned in place. Distal femoral cut was made to take an additional 3 mm of bone off distal femur. The femur was then sized to a size 65. We did downsize this almost an entire size due to the narrow medial and lateral dimensions of the femur. The AP cutting block was pinned parallel to the epicondylar axis which was 5 degrees of external rotation. The anterior cut, anterior chamfer, posterior cut, posterior chamfer cuts were made. The box cutting guide was placed in the just slight lateral and the box cut was made. The knee was flexed. The remnants of the medial and lateral menisci were excised. The osteophytes taken off the posterior aspect the femur. A trial femoral component was placed for the tibial tray was pinned in Julieta external rotation and the drill and stem punch were used to create the defect in the proximal tibia for the tibial tray. The knee was then trialed and the 10 mm insert fit most appropriately. Attention drawn the patella. The patella was cleaned of all soft tissue. Patella thickness measured 22 mm in thickness was cut down to 13. Was sized to a size 31 patella. The locals were drilled for 31 patella. The lateral osteophyte was removed. Patella button was placed. Knee was taken through range of motion and the patella tracked nicely with no thumbs test. Attention drawn to placing permanent components. Nupathe all trial components were removed. Bone plug was placed in the distal femur limit blood loss. Double batch Palacos G cement was mixed. A Biomet Vanguard size 65 left posterior Byce femoral component, size 71 tibial tray, a 10 mm posterior Byce polyethylene insert, and a 31 x 8 all poly patella then cemented in place. The knee was brought out into full extension till cement hardened. Final cement check was then performed. The pericapsular tissues were injected with total of 100 cc of Ortho mix. The patient did receive 1 g tranexamic acid. The tourniquet was then let down for final tourniquet time of 58 minutes. Hemostasis assured with electrocautery. Extensor Meclomen closed with combination 1 PDS suture #1 Vicryl suture in a [id number] fashion. Extensor Meclomen checked found to be intact and subcutaneous tissues then closed with 2 Dexon suture in a buried interrupted fashion skin was closed skin pop. Leg was then cleaned and dried and sterile dressed with Xeroform, 4 x 4's, sterile cast padding, Dakota bandage were applied. Patient then transferred to the recovery room in stable condition. The patient tolerated the procedure well and there were no complications. Chun Kirkland, my physician volleyball assistant coach, was present for the entire procedure. His assistance was essential and required for appropriate patient positioning, prepping and draping, surgical exposure, performing the technical details of the operation, placement the implants, closure of the wound, and placement of the sterile bandage. I attest to the content of the Intraoperative Record and any orders documented therein. Any exceptions are noted below.
--- NOTE | 2024-03-30 10:14 | XRay Report ---
XR knee LT 1 or 2V routine CLINICAL HISTORY: Surgical Post Op TECHNIQUE: 2 views of the left knee were obtained. Comparison: Comparison is made to knee radiographs 02/12/2024 FINDINGS: Patient is status post total knee arthroplasty with expected postsurgical changes including soft tiss ue swelling and subcutaneous emphysema. No periarticular lucency or hardware fracture is seen. IMPRESSION: Expected postoperative appearance status post placement of total knee arthroplasty. ACT 112: Negative or not required by law. Electronically signed by: Gilles Salinas M.D. 03/30/2024 10:12 AM
[2024-03-30] MEDS ORDERED: METOCLOPRAMIDE HCL INJ 5 MG/ML 2 ML VIAL IV PRN (10:32)
[2024-03-30] MEDS ORDERED: ALUMINUM/MAGNESIUM SUSP 30 ML UDC PO PRN (10:32)
[2024-03-30] MEDS ORDERED: oxyCODONE HCL IR 5 MG TAB (IMMEDIATE RELEASE) PO PRN (10:32)
[2024-03-30] MEDS ORDERED: bisacodyL 10 MG SUPP PR PRN (10:32)
[2024-03-30] MEDS ORDERED: HYDROmorphone INJ 0.5 MG/0.5 ML SYR IV PRN (10:32)
[2024-03-30] MEDS ORDERED: MAGNESIUM HYDROXIDE SUSP 30 ML UDC PO PRN (10:32)
[2024-03-30] MEDS ORDERED: NALOXONE HCL 0.4 MG/1 ML VIAL/CARP IV PRN (10:32)
[2024-03-30] MEDS ORDERED: FLUTICASONE PROPIONATE NA SPR 16 GM BTL NAE PRN (10:32)
[2024-03-30] MEDS ORDERED: SENNA 8.6 MG TAB PO SCH ×2 (10:32→11:00)
[2024-03-30] MEDS ORDERED: PANTOprazole 40 MG TAB PO PRN (10:40)
[2024-03-30] MEDS ORDERED: ASPIRIN 81 MG ECTAB PO SCH (11:00)
[2024-03-30] MEDS: SODIUM CHLORIDE 0.9% 1,000 ML IV SCH (11:49)
[2024-03-30] MEDS: KETOROLAC TROMETHAMINE 15 MG/ML VIAL IV SCH (11:50)
[2024-03-30] MEDS: DOCUSATE SODIUM 100 MG CAP PO SCH (11:50)
[2024-03-30] MEDS: MULTIVITAMIN TAB PO SCH (11:50)
[2024-03-30] MEDS: ASPIRIN 81 MG ECTAB PO SCH (11:50)
[2024-03-30] MEDS: oxyCODONE HCL IR 5 MG TAB (IMMEDIATE RELEASE) PO PRN (12:48)
[2024-03-30 13:53] VITALS: RESP 16
[2024-03-30] MEDS: TRANEXAMIC ACID / 0.7% NACL 1,000 MG/100 ML BAG IV SCH (15:17)
--- NOTE | 2024-03-30 15:41 | Anesthesiology Progress Note ---
Date of Service March 30, 2024 Anesthesia Post Procedure Vital Signs Vital Signs: Temp Pulse Pulse Pulse Resp BP Pulse Ox 03/30/24 15:39 98 H 90 03/30/24 13:15 36.9 C 100 H 16 111/61 94 03/30/24 12:09 36.8 C 100 H 20 145/69 H 97 03/30/24 11:34 36.4 C L 101 H 16 133/76 95 03/30/24 10:42 36.7 C 89 16 116/67 95 03/30/24 10:00 83 14 120/68 94 03/30/24 09:45 36.4 C L 81 14 109/64 93 03/30/24 09:30 80 20 109/74 96 03/30/24 09:15 85 14 120/63 97 03/30/24 09:05 83 15 126/65 100 03/30/24 08:55 84 14 122/63 99 03/30/24 08:47 36.0 C L 94 H 14 113/64 100 03/30/24 05:52 36.9 C 82 17 151/93 H 97 O2 Del Method O2 Flow Rate 03/30/24 15:39 Room Air 03/30/24 13:15 Room Air 03/30/24 12:09 Room Air 03/30/24 11:34 Room Air 03/30/24 10:42 Room Air 03/30/24 10:00 Room Air 03/30/24 09:45 Room Air 03/30/24 09:30 Room Air 03/30/24 09:15 Room Air 03/30/24 09:05 Oxymask 4 03/30/24 08:55 Oxymask 4 03/30/24 08:47 Oxymask 6 03/30/24 05:52 Room Air Pain Intensity Left Knee: Pain Intensity: 2 Transfer of Care Handoff Completed per policy Notes Mental Status: alert / awake / arousable and participated in evaluation Patient Amnestic to Procedure: Yes Nausea / Vomiting: adequately controlled Pain: adequately controlled Airway Patency, RR, SpO2: stable & adequate BP & HR: stable & adequate Hydration State: stable & adequate Neuraxial Anesthesia: was administered and sensory block is resolving Anesthetic Complications: no major complications apparent and Pt Satisfied with anesthetic care
[2024-03-30] MEDS: ASCORBIC ACID 500 MG TAB PO SCH (17:20)
[2024-03-30] MEDS: SENNA 8.6 MG TAB PO SCH (20:18)
[2024-03-30] MEDS: SERTRALINE HCL 50 MG TABLET PO SCH (20:21)
[2024-03-30] MEDS: ATORVASTATIN 20 MG TAB PO SCH (20:21)
[2024-03-30] MEDS ORDERED: NON-FORMULARY MEDICATION (Coenzyme Q10 [Co Q-10] 100 mg Capsule) PO SCH (21:00)
[2024-03-30] MEDS ORDERED: VITAMIN D3 VITAMIN K2 PO SCH (21:00)
[2024-03-30] MEDS: MELATONIN 3 MG TAB PO PRN (23:28)
[2024-03-31 07:07] VITALS: BP 124/65; TEMP 97.9; O2SAT 95
[2024-03-31 08:06] LABS: Hematocrit (blood only) 33.8 % (37.0-47.0); Mean Corpuscular Hemoglobin 27.4 pg (25.0-34.0); Mean Corpuscular Hgb Conc 32.5 g/dL (32.0-36.0); Mean Corpuscular Volume 84.3 fL (80.0-100.0); Mean Platelet Volume 11.1 fL (9.4-12.4); Platelet Count 205 K/uL (130-400); RDW Standard Deviation 39.8 fL (36.4-46.3); Red Blood Count 4.01 M/uL (4.20-5.40); White Blood Count 10.59 K/ul (4.8-10.8)
[2024-03-31] MEDS: ONDANSETRON INJ 2 MG/ML 2 ML VIAL IV PRN (09:10)
[2024-03-31] MEDS: dexAMETHasone 10 MG in SYRINGE 0 ML IV SCH (09:12)
[2024-03-31 09:46] LABS: Calcium 8.9 mg/dl (8.6-10.3)
[2024-03-31 09:51] LABS: BUN Creatinine Ratio 27.8 (10-20); Creatinine Clr Calc Pharmacy 70.6 ml/min; Est GFR (Non-African American) 83.7 ml/min
[2024-03-31 10:50] VITALS: PULSE 83
--- NOTE | 2024-03-31 12:38 | Orthopedic Progress Note ---
Date of Service March 31, 2024 Assessment & Plan (1) Status post left knee replacement: Plan: 73-year-old female postop day 1 from left knee replacement doing well. Pains controlled. She had a reasonable night. She is hoping to go home. Plan: 1. DVT prophylaxis including thigh-high teds, SCDs, aspirin twice a day. 2. PT/OT. She can weight-bear as tolerated. Left total knee protocol. 3. Pain control doing okay with current pain regimen. 4. Disposition plan is to discharge to home with some home health later today. (2) Status post right knee replacement: Admission and Anticipated Discharge Date Admission Date: March 30, 2024 Subjective 73-year-old female postop day 1 from left knee replacement. She is doing pretty well. Had a better night last night. She took a sleeping aid which seemed to help. No chest pain or shortness of breath. Pains controlled. Hoping to go home today. Physical Exam Physical Exam: Physical exam shows a pleasant middle-age female. Today she sitting up in her bedside chair looks pretty comfortable. Examination left leg reveals the dressing be clean dry and intact. She can dorsiflex and plantarflex her foot appropriately. She is neurologically intact. Respiratory: normal respiratory effort, lungs clear to auscultation Cardiovascular: RRR, no murmur, no edema Gastrointestinal (Abdomen): normal bowel sounds, soft, nontender, no hepatosplenomegaly Results & Data Vital Signs (Past 12 Hours) Vital Signs Temp Pulse Pulse Resp BP Pulse Ox O2 Del Method 03/31/24 10:48 36.6 C 83 75 16 124/65 95 03/31/24 07:06 36.6 C 75 16 124/65 95 Room Air 03/31/24 03:40 36.8 C 74 16 119/75 96 Room Air Laboratory Results Hemoglobin is 11.0. Hematocrit is 33.8. Electrolytes are stable.
== END 2024-03-31 12:09 | disposition home health service (06) ==
LOC: 3N 05:08 → ASU 05:08